=== PATIENT | male | born 1960 | race African-American/Black ===

== ENCOUNTER 2016-07-23 16:32 | Emergency (ER) | payer OTHER | END 2016-07-23 16:44 | disposition home or self-care (01) | LOC: CFTX 16:32 | DX: A60.01 Herpesviral infection of penis (principal); M54.5 Low back pain; G89.29 Other chronic pain; I10 Essential (primary) hypertension; E78.5 Hyperlipidemia, unspecified; Z98.890 Other specified postprocedural states | CPT/HCPCS: 96372; 99283; J1885 ==